=== PATIENT | male | born 1980 | race Caucasian/White ===

== ENCOUNTER 2019-11-19 11:41 | Emergency (ER) | payer SELFPAY ==
--- NOTE | 2019-11-19 12:23 | PDOC ---
Rapid Medical Evaluation Time Seen by Provider: 11/19/19 12:12 Medical Evaluation: Allergies Allergy/AdvReac Type Severity Reaction Status Date / Time No Known Allergies Allergy Verified 10/10/15 18:20 11/19/19 12:22 The patient is a 39 y/o M with no PMH presents for increasing SOB and cough. States he tested covid positive. Also admits to associated vomiting Exam: decreased lung sounds at the bases Order: CXR Pt to proceed to the tent for futher evaluation
[2019-11-19 12:33] VITALS: BP 125/82; PULSE 81; TEMP 98.8
--- NOTE | 2019-11-19 12:55 | PDOC ---
Rapid Medical Evaluation Chief Complaint: Respiratory Time Seen by Provider: 11/19/19 12:12 Medical Evaluation: Allergies Allergy/AdvReac Type Severity Reaction Status Date / Time No Known Allergies Allergy Verified 10/10/15 18:20 Vital Signs Temp Pulse Resp BP Pulse Ox 98.8 F 81 18 125/82 99 11/19/19 12:30 11/19/19 12:30 11/19/19 12:30 11/19/19 12:30 11/19/19 12:30 11/19/19 12:46 HPI: The patient is a 39M presents with no exposure to, suspected, or confirmed COVID-19 with associated symptoms of fever, dry cough. Denies SOB, anorexia, or diarrhea, complicated by this/these comorbidities: [none]. ROS: NEGATIVE: difficulty breathing, shortness of breath, chest pain, lightheadedness, dizziness, nausea, vomiting and diarrhea. Other 12 point ROS reviewed and negative. Exam: General: NAD, Well-Appearing, Awake, Alert Oriented x3. Vital signs stable. ENT: No rhinorrhea or nasal congestion. Neck: FROM, no midline tenderness. Lungs: Clear to auscultation bilaterally without wheezes, rhonchi or rales. Normal excursion. Patient is able to speak in full sentences. Heart: HR: [ ] Regular rhythm, S1-S2 present, no murmurs rubs or gallops. Abdomen: Non-distended. MSK/Extremities: No decrease ROM, No obvious deformities. No obvious cyanosis noted. Neuro: Normal Gait, Cranial Nerves II through XII Grossly Intact. Skin: No obvious rashes, bruising. Color Normal Appearing. Assessment/Plan: [Cough/fever] Patient has a history of this/these comorbidities: [none], denies recent travel and known COVID exposure. Patient does not meet testing criteria at this time. ASSESSMENT: Denies recent travel and known Covid exposure. Treatment: CXR shows some haziness int left lower lung will d/c on zpak Tessalon perles prn for cough advised on Increased fluid intake strict self quarantine info given to pt stable for d/c Discharge Disposition - Diagnosis URI with cough and congestion - Discharge Dispostion Disposition: HOME Condition at time of disposition: Stable Decision to Admit order: No - Prescriptions Prescriptions: Ipratropium [place] 2 spray NS BID PRN #1 spray PRN Reason: nasal congestion Benzonatate [Tessalon Pearls -] 100 mg PO TID PRN #21 capsule PRN Reason: Cough Azithromycin [Zithromax 250mg Tablets -] 250 mg PO UTDICT #6 tab - Referrals - Patient Instructions Printed Discharge Instructions: [facility]on[facility] Instructions, [facility] COVID-19 Isolation Protocol Additional Instructions: You were seen for your cough and possible Coronavirus (COVID-19) Please call the [facility] testing center to make an appointment at or you can call [facility] at from 8:30 AM to 6 PM; or you can visit the [facility] website: [email or web address] for more information about testing at the [facility]. Take Tylenol 650 mg every 6 hours as needed for fever or pain. You may take Robitussin or other [id number] cough syrup. Follow the dosing instructions on the bottle. Warm tea, honey, and salt water gargles may help your symptoms. Please take precautions and self quarantine for 2 weeks and follow-up with your primary care doctor and the Department of Health. Return to the nearest emergency department for shortness of breath, difficulty breathing, chest pain, or if you have any changes in your symptoms. - Post Discharge Activity
== END 2019-11-19 13:09 | disposition home or self-care (01) ==
LOC: JER 11:41
DX: R05 Cough (principal); R09.81 Nasal congestion; J06.9 Acute upper respiratory infection, unspecified
CPT/HCPCS: 71045-TC-FY; 99283-25

== ENCOUNTER 2023-03-04 01:25 | Emergency (ER) | payer SELFPAY ==
[2023-03-04 01:33] VITALS: BP 161/90; PULSE 93; RESP 20; TEMP 98.5; BMI 26.6
== END 2023-03-04 02:40 | disposition home or self-care (01) ==
LOC: JER 01:25
DX: I83.91 Asymptomatic varicose veins of right lower extremity (principal)
CPT/HCPCS: 99282-25